=== PATIENT | female | born 1995 | race American Indian/Alaskan Native ===

== ENCOUNTER 2017-06-29 13:21 | Emergency (ER) | payer OTHER ==
[2017-06-29 13:32] VITALS: TEMP 98.3; O2SAT 99; BMI 31.1
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
[2017-06-29 16:05] VITALS: BP 118/69; PULSE 75; RESP 8
--- NOTE | 2017-06-29 16:25 | US ---
PROCEDURE: OB Pelvic Ultrasound HISTORY: access for viability/hr COMPARISON: None available. FINDINGS: UTERUS: Gestational sac: Single live intrauterine fetus in cephalic presentation. Heart rate: 132 bpm. BPD: 9.2 cm corresponding to 37 weeks and 5 days of gestational age. HC: 33.4 cm corresponding to 38 weeks and 2 days of gestational age. AC: 31.2 cm corresponding to 35 weeks and 1 day of gestational age. FL 7.1 cm corresponding to 36 weeks and 4 days of gestational age. age (Ultrasound estimated): 37 weeks and 0 days Myra-gestational hemorrhage: None. Date of delivery (Ultrasound estimated) : 07/20/2017 Placenta is anterior. Estimated weight is 2870 grams. CERVIX: Long and closed. No cervical abnormality seen. RIGHT OVARY: Not visualized. LEFT OVARY: Not visualized. FREE FLUID: None. OTHER FINDINGS: None. IMPRESSION: Single live intrauterine fetus in cephalic presentation with mean gestational age of 37 weeks and 0 days. The estimated date of delivery by ultrasound is 07/20/2017. Placenta is anterior. Cervix is closed. Please note this is a limited OB ultrasound performed in the emergency room for viability.
== END 2017-06-29 16:39 | disposition home or self-care (01) ==
LOC: ED 13:21
DX: S39.012A Strain of muscle, fascia and tendon of lower back, initial encounter (principal); V49.59XA Passenger injured in collision with other motor vehicles in traffic accident, initial encounter; Y92.89 Other specified places as the place of occurrence of the external cause; O26.893 Other specified pregnancy related conditions, third trimester; Z3A.37 37 weeks gestation of pregnancy